=== PATIENT | male | born 1970 | race Caucasian/White ===

== ENCOUNTER 2021-03-15 16:26 | Emergency (ER) | payer MEDICARE, MEDICAID, SELFPAY ==
--- NOTE | ~2021-03-15 | CT_ITS ---
EXAMINATION: CT HEAD WITHOUT CONTRAST CLINICAL INFORMATION: Fell backwards in wheelchair, struck head, headache. COMPARISON: 08/25/[address] TECHNIQUE: Contiguous axial imaging was performed from the skull base to vertex without intravenous administration of contrast. Coronal and sagittal reformatted images were obtained. This CT examination was performed using dose optimization techniques as appropriate, variously including the following: *Automated exposure control *Adjustment of mA and/or kV according to patient size (this includes techniques or standardized protocols for targeted exams where dose is matched to indication/reason for exam; i.e. extremities or head) *Use of iterative reconstruction technique DLP: 950.08 mGy-cm FINDINGS: The patient is status post bifrontal craniotomies with associated calvarial postsurgical changes. Encephalomalacia in the occipital lobes medially and associated dilatation of the occipital horns, left greater than right are again seen without significant change. There is mild widening of the cortical sulci and associated ventriculomegaly. The lateral ventricles are symmetrical. The third and fourth ventricles are in their normal midline position. The basilar and prepontine cisterns are unremarkable. There is no acute intra or extracerebral abnormality. There is no mass effect or midline shift. Sections through the bony calvarium are unremarkable. The orbits are intact. The paranasal sinuses are clear. The mastoid air cells are clear. Mild anterior nasal septal deviation, apex to the left is again noted without interval change. CT/CT head/brain wo con IMPRESSION: No acute intracranial pathology. Changes bilaterally without significant change.
--- NOTE | ~2021-03-15 | CT_ITS ---
EXAMINATION: CT CERVICAL SPINE WITHOUT CONTRAST CLINICAL INFORMATION: Fell backwards in wheelchair, struck head, neck pain. COMPARISON: None TECHNIQUE: Multiple axial images of the cervical spine were obtained without administration of intravenous contrast. Coronal and sagittal reformatted images were obtained. This CT examination was performed using dose optimization techniques as appropriate, variously including the following: *Automated exposure control *Adjustment of mA and/or kV according to patient size (this includes techniques or standardized protocols for targeted exams where dose is matched to indication/reason for exam; i.e. extremities or head) *Use of iterative reconstruction technique DLP: 1356.91 mGy-cm FINDINGS: There is normal cervical lordosis and spinal alignment. The vertebral bodies are intact. Mild disc space narrowing is seen at C6-C7. The remainder of the intervertebral disc spaces are unremarkable. Mild multilevel marginal osteophyte formation is seen. The spinous processes and odontoid process are intact. There is no acute fracture. The prevertebral soft tissues are unremarkable. The cervical soft tissues are unremarkable. There is no lymphadenopathy. The thyroid gland is unremarkable. The lung apices are unremarkable. CT/CT cervical spine wo con IMPRESSION: C6-C7 mild degenerative disc disease. No acute cervical spine abnormality.
[2021-03-15 16:53] VITALS: BP 134/72; PULSE 80; RESP 16; TEMP 36.8; O2SAT 97; BMI 38.5
--- NOTE | 2021-03-15 18:12 | ED_ITS ---
HPI - Fall General Chief Complaint: Fall Stated Complaint: FALL OUT OF CHAIRVAN,BACK PAIN Time Seen by Provider: 03/15/21 17:09 Source: patient and other (correction Staff member) Mode of arrival: EMS Limitations: no limitations History of Present Illness HPI Narrative: 51-year-old male with a history of acquired pain injury who presents emergency department for evaluation of injuries from a fall. The patient is legally blind and is in a wheelchair. The patient was being transported in his wheelchair. According to the longterm member that is here in the emergency department the wheelchair lift failed causing the patient to draw backwards on his wheelchair striking the back of his head. Unknown if the patient had any loss of consciousness. The patient initially complained of lower back pain. The patient was transported to the emergency department by ambulance. Here in the emergency department, the patient has no complaints. He denied headache, neck pain, chest pain, abdominal pain or back pain. Related Data Allergies Allergy/AdvReac Type Severity Reaction Status Date / Time No Known Allergies Allergy Verified 03/15/21 17:01 Review of Systems Review of Systems: Yes all other systems are reviewed and are negative [facility] Past Medical History Medical History (Updated 03/15/21 @ 20:48 by Moses Canchola MD) Acquired brain deformity Cerebral infarction Cortical blindness Delusional disorder Frontotemporal dementia Social History Social History Advance Directives: No Physical Exam Vital Signs: Vital Signs: Last Vital Signs Temp 98.2 F 03/15/21 16:53 Pulse 80 03/15/21 16:53 Resp 16 03/15/21 16:53 BP 134/72 03/15/21 16:53 Pulse Ox 97 03/15/21 16:53 Body Mass Index 38.5 Const: General: cooperative and no acute distress Nutritional Appearance: overweight Orientation/consciousness: oriented to person and oriented to place Limitations: no limitations HENMT: Head: Yes normal to inspection, Yes normocephalic and Yes atraumatic Ears: external ears normal General nose exam: Normal external nose present Face and sinus: Yes normal facial exam Mouth: Normal oral and palatal mucosa present Throat: Yes posterior oropharynx normal Eyes: Other: The patient is blind, the patient's right eye is deviated laterally and has dysconjugate gaze. Neck: Neck: Yes normal visual inspection, Yes no lymphadenopathy, Yes trachea midline and Yes supple Chest: Chest palpation & inspection: normal inspection of the chest and normal palpation of entire chest wall Resp: Effort & Inspection: normal respiratory effort and able to speak in complete sentences Auscultation: clear to auscultation bilaterally Cardio: Rate: regular rate Rhythm: regular rhythm Heart sounds: S1 normal heart sound present, S2 normal heart sound present and no murmurs GI: Inspection: Yes normal to inspection Palpation (GI): Soft to palpation, nontender and no guarding Auscultation: normal bowel sounds : General: Yes no CVA tenderness Back/Spine/Pelvis: Back: no CVA tenderness Skin: General skin exam: no rashes or lesions noted Neuro: General: oriented to person and oriented to place Cranial nerves: Yes CN's II-XII intact bilaterally Cognition (Neuro): normal cognition Motor exam (neuro): 5/5 motor strength present throughout Extrem: General: Yes normal to inspection Psych: Appearance: grossly normal Speech and movement: Normal speech and movement present Affect: normal affect Attitude: cooperative Course Course Course Narrative: 51-year-old male who presents emergency department for evaluation of fall while restrained in a wheelchair secondary to lift mechanism failure. The patient was restrained in his wheelchair and he fell backwards striking his head, it is unclear if any loss of consciousness. The patient's physical examination was unremarkable but given the mechanism of injury, I did order a CT scan of the patient's head and neck to rule out fracture and bleed. 2044: The CT scan of the patient's head revealed no acute fracture or bleed, patient has no significant change compared to his previous scan. The CT scan of the cervical spine revealed no acute fracture. I did discuss this with the patient. Patient was advised to take Tylenol 500 mg pills, 2 pills every 6 hours as needed for pain. He was discharged home. The patient was given verbal and printed instructions prior to discharge. The patient was advised to follow- up with his PCP in 2 days and to return to the emergency department if his symptoms get worse or if he develops any new symptoms that are concerning to him. Discharge Plan Discharge Clinical Impression: Fall Qualifiers: Encounter type: initial encounter Qualified Code(s): W19.XXXA - Unspecified fall, initial encounter CHI (closed head injury) Qualifiers: Encounter type: initial encounter Qualified Code(s): S09.90XA - Unspecified injury of head, initial encounter Patient Disposition: Home, Self-Care Instructions: Head Injury (ED), Contusion in Adults (ED) Additional Instructions: The CT scan of your head revealed no skull fracture or bleeding in the brain. The CT scan was unchanged from your previous CT scan which is reassuring. The CT scan of your neck revealed no broken bones/fractures. Take Tylenol (acetaminophen) 500 mg pills, 2 pills every 6 hours as needed for pain. Follow-up with your doctor in 2 days. Please return to the emergency department if your symptoms get worse or if you develop any symptoms that are concerning to you.
== END 2021-03-15 21:41 | disposition home or self-care (01) ==
PROVIDERS: Emergency Provider Emergency Medicine Emergency Medical Services; PCP Internal Medicine
DX: S09.90XA Unspecified injury of head, initial encounter (principal); W17.89XA Other fall from one level to another, initial encounter; Y93.89 Activity, other specified; Y92.818 Other transport vehicle as the place of occurrence of the external cause; Y99.9 Unspecified external cause status
CPT/HCPCS: 70450; 72125; 99283; 99284